=== PATIENT | female | born 1990 | race Caucasian/White ===

== ENCOUNTER 2019-12-10 20:36 | Emergency (ER) | payer BC ==
[~2019-12-10] VITALS: Ht 165.1 cm; Wt 58.5 kg
[2019-12-10 20:47] VITALS: Ht 165.1 cm; Wt 58.5 kg
[2019-12-10 21:40] LABS: microscopic required? YES; urine erythrocyte 1+ (NEGATIVE)
[2019-12-10 22:27] VITALS: BP 106/65
== END 2019-12-10 22:27 | disposition home or self-care (01) ==
LOC: ED 20:36
PROVIDERS: Emergency Medicine
DX: N39.0 Urinary tract infection, site not specified (principal)
CPT/HCPCS: 87491; 87591

== ENCOUNTER 2020-05-03 10:27 | Emergency (ER) | payer BC ==
[~2020-05-03] VITALS: Ht 167.6 cm; Wt 58.1 kg
[2020-05-03 10:39] VITALS: Ht 167.6 cm; Wt 58.1 kg
[2020-05-03 11:26] LABS: microscopic required? YES; urine erythrocyte TRACE (NEGATIVE)
[2020-05-03 11:33] LABS: BASOPHIL % 0.5 % (0-2); PLATELET COUNT 215 x10^3mcL (130-400); RED CELL DISTRIBUTION WIDTH 14.1 % (11.5-14.5)
[2020-05-03 11:44] LABS: CALCIUM 9.1 mg/dL (8.5-10.1); CARBON DIOXIDE 25.1 mmol/L (21-32); CHLORIDE SERUM 105 mmol/L (98-107); CREATININE SERUM 0.9 mg/dL (0.6-1.0); GFR1 > 60 mL/min; GLUCOSE SERUM 97 mg/dL (74-106); POTASSIUM SERUM 4.3 mmol/L (3.5-5.1); SODIUM SERUM 138 mmol/L (136-145)
[2020-05-03 11:48] LABS: ALBUMIN 3.6 g/dL (3.4-5.0); ALKALINE PHOSPHATASE 70 U/L (46-116); ALT/SGPT 17 U/L (14-59); AST/SGOT 13 U/L (15-37)
[2020-05-03 12:28] VITALS: BP 122/82
== END 2020-05-03 12:28 | disposition home or self-care (01) ==
LOC: ED 10:27
PROVIDERS: Emergency Medicine
DX: M54.5 Low back pain (principal); M79.10 Myalgia, unspecified site; R43.8 Other disturbances of smell and taste

== ENCOUNTER 2020-05-21 11:11 | Emergency (ER) | payer BC ==
[~2020-05-21] VITALS: Ht 165.1 cm; Wt 57.6 kg
[2020-05-21 11:23] VITALS: Ht 165.1 cm; Wt 57.6 kg
[2020-05-21 14:23] VITALS: BP 99/61
== END 2020-05-21 14:23 | disposition home or self-care (01) ==
LOC: ED 11:11
DX: M51.36 Other intervertebral disc degeneration, lumbar region (principal); S39.012A Strain of muscle, fascia and tendon of lower back, initial encounter; X58.XXXA Exposure to other specified factors, initial encounter; Y93.89 Activity, other specified; Y92.89 Other specified places as the place of occurrence of the external cause; Y99.8 Other external cause status
CPT/HCPCS: J1885; J7512